=== PATIENT | male | born 1955 | race Caucasian/White ===

== ENCOUNTER 2023-09-24 14:01 | Inpatient (IN) | payer OTHER ==
[2023-09-24] MEDS ORDERED: ASPIRIN 81 MG CHEWABLE TABLET ONE (14:44)
[2023-09-24 15:01] LABS: Absolute Eosinophils 0.2 K/uL (0-0.5); Absolute Lymphocytes (CBC) 1.2 K/uL (0.7-4.9); Absolute Monocytes 1.3 K/uL (0.1-1.3); Absolute Neutrophil 8.3 K/uL (1.8-8.0); Basophils % 0.4 % (0-1.3); Eosinophils % 1.8 % (0-4.4); Hematocrit 45.7 % (39.6-49.0); Hemoglobin 14.4 g/dL (13.6-17.9); Lymphocytes % 10.9 % (15.3-44.8); MCH 28.6 pg (27.0-35.0); MCHC 31.4 g/dL (32.0-36.0); MCV 91.1 fL (80-100); MPV 7.6 fL (7.6-11.3); Neutrophils % 74.9 % (41.7-73.7); Platelets 317 thou/uL (152-406); RBC Red Blood Cell Count 5.02 M/uL (4.33-5.43); Red Cell Distribution Width 14.8 % (12.1-15.2)
[2023-09-24 15:11] LABS: PT Prothrombin Time 10.3 SECONDS (9.5-12.5); Protime INR 0.93
[2023-09-24 15:52] LABS: ALT/SGPT 33 U/L (16-61); AST/SGOT 20 U/L (15-37); Albumin 3.1 g/dL (3.4-5.0); Albumin/Globulin Ratio 0.8 (1.1-1.8); Alkaline Phosphatase 100 U/L (45-117); BUN Blood Urea Nitrogen 13 mg/dL (7-18); Bicarbonate 30 mEq/L (21-32); Bilirubin Total 0.3 mg/dL (0.2-1.0); Globulin 3.9 g/dL (2.3-3.5); Glomerular Filtration Rate 106 ml/min (=/>90); Glucose Level 111 mg/dL (74-106); Magnesium 2.3 mg/dL (1.6-2.4); NT PRO-BNP 44 pg/mL (<125); Sodium Level 133 mEq/L (136-145)
[2023-09-24 15:54] LABS: Bilirubin Direct < 0.2 mg/dL (0-0.2); Bilirubin Indirect, Calculated 0.1 mg/dL (0.2-0.8)
[2023-09-24] MEDS ORDERED: ALBUTEROL 2.5 MG/3 ML NEB SOL ONE ×2 (16:50→18:29)
[2023-09-24] MEDS ORDERED: IPRATROPIUM BROM 0.5MG/2.5ML ONE ×2 (16:50→18:29)
--- NOTE | 2023-09-24 17:48 | RAD REPORT ---
EXAM DESCRIPTION: [place] Single View09/24/2023 3:21 pm CLINICAL HISTORY: CHEST PAIN COMPARISON: CHEST SINGLE VIEW dated 05/21/2008; CTANGIO AORTA FOR DISSECTION dated 05/21/2008 TECHNIQUE: Portable AP view of the chest. FINDINGS: New patchy right lower lung airspace opacity with elevation of the right hemidiaphragm. N o pneumothorax or effusion. The cardiomediastinal contours are unremarkable. IMPRESSION: New patchy right lower lung airspace opacity with elevation of the right hemidiaphragm, which may reflect atelectasis or pneumonia.
[2023-09-24] MEDS ORDERED: CEFTRIAXONE 1000 MG/VIAL ONE (18:01)
[2023-09-24] MEDS ORDERED: METHYLPREDNISOLONE 125 MG INJ ONE (18:01)
[2023-09-24] MEDS ORDERED: AZITHROMYCIN 500 MG INJ IVPB ONE (18:02)
[2023-09-24] MEDS ORDERED: NA CHLORIDE 0.9% 250 ML ONE (18:02)
--- NOTE | 2023-09-24 19:20 | EDPHYS ---
Physician Documentation [facility] Name: Jake Lenz Age: 68 yrs Sex: Male : 1955 Arrival Date: 09/24/2023 Time: 14:01 Bed 14 Private MD: ED Physician Luis Cameron HPI: 09/23 15:08 This 68 yrs old Male presents to ER via EMS with complaints of Chest Tightness. sb4 15:08 Patient states that he developed chest tightness in the middle of his chest today while sb4 working outdoors. He felt his pulse and believed he was "skipping beats"does endorse shortness of breath, but states that is chronic due to his COPD. He has history of hypertension in which she takes medication but he has been out of his atenolol for an unknown amount of time. Denies any nausea or vomiting. Denies any known cardiac history. Historical: - Allergies: 14:31 No Known Allergies; bp - PMHx: 14:31 Chronic obstructive lung disease; Hypertensive disorder; bp - Immunization history:: Adult Immunizations up to date. - Infectious Disease History:: Denies. - Social history:: Smoking status: unknown. ROS: 15:08 Constitutional: Negative for fever, chills, and weight loss, sb4 15:08 Cardiovascular: Positive for chest pain, 15:08 Respiratory: Positive for shortness of breath, 15:08 All other systems are negative, Exam: 15:08 Constitutional: This is a well developed, well nourished patient who is awake, alert, sb4 and in no acute distress. Head/Face: Normocephalic, atraumatic. Eyes: Extra-ocular motions intact. Periorbital areas with no swelling, redness, or edema. ENT: Mucous membranes moist. Cardiovascular: Regular rate and rhythm with a normal S1 and S2. Skin: Warm, dry with normal turgor. Normal color with no rashes, no lesions, and no evidence of cellulitis. MS/ Extremity: Pulses equal, no cyanosis. Neurovascular intact. Full, normal range of motion. 15:08 Abdomen/GI: Inspection: obese 19:22 Respiratory: the patient does not display signs of respiratory distress, Respirations: sb4 normal, Breath sounds: rhonchi, are scattered, wheezing: Vital Signs: 14:30 BP 192 / 96; Pulse 93; Resp 16; Temp 98; Pulse Ox 93% ; bp 15:12 BP 171 / 102; Pulse 96; Resp 19 S; Pulse Ox 94% on R/A; kc6 16:06 BP 169 / 98; Pulse 94; Resp 20 S; Pulse Ox 95% on R/A; kc6 16:59 BP 168 / 84; Pulse 92; Resp 19 S; Pulse Ox 95% on Nebulizer Mask; kc6 17:38 BP 161 / 83; Pulse 94; Resp 19 S; Pulse Ox 92% on R/A; kc6 18:20 Pulse Ox 87% on 3 lpm NC; kc6 19:00 BP 164 / 87; Pulse 95; Resp 18; Pulse Ox 91% on 3 lpm NC; Pain 0/10; cm10 19:30 BP 159 / 78; Pulse 94; Resp 18; Pulse Ox 94% on 3 lpm NC; cm10 20:00 BP 160 / 86; Pulse 93; Resp 18; Pulse Ox 93% on 3 lpm NC; cm10 21:00 BP 147 / 81; Pulse 91; Resp 20; Pulse Ox 91% on 3 lpm NC; cm10 21:30 BP 173 / 94; Pulse 93; Resp 20; Pulse Ox 93% on 3 lpm NC; cm10 22:00 BP 152 / 89; Pulse 92; Resp 18; Pulse Ox 94% on 3 lpm NC; cm10 06/04 00:00 BP 143 / 78; Pulse 99; Resp 20; Pulse Ox 94% on 3 lpm NC; cm10 19:00 Pain Scale: Adult cm10 MDM: 09/23 14:25 Patient medically screened. sb4 15:08 The patient was not given aspirin in the Emergency Department. Administered by EMS. sb4 16:23 Scoring Tools HEART Score: History: ECG: Age: Risk Factors: > or = 3 Risk factors for sb4 atherosclerotic disease (2), Troponin: Total Score = 5. 18:00 Data reviewed: vital signs, nurses notes, lab test result(s), EKG, radiologic studies, sb4 and as a result, I will discharge patient. Consideration of Admission/Observation Escalation of care including admission/observation considered. Counseling: I had a detailed discussion with the patient and/or guardian regarding the historical points, exam findings, and any diagnostic results supporting the discharge/admit diagnosis, the presence of at least one elevated blood pressure reading (>120/80) during this emergency department visit, lab results, radiology results. 18:13 ED course: O2 in the high 80s during my reassessment while we are conversing. states he sb4 feels better, still wheezing on auscultation. discussed results of pneumonia. placed on oxygen. will administer antibiotics, steroids, repeat breathing treatment, and reassess. he is not wanting to stay in the hospital. 19:18 ED course: patient still with wheezes/crackles and O2 at 93% on 3L. will admit for sb4 further management. 09/23 14:33 Order name: Basic Metabolic Panel; Complete Time: 15:57 sb4 09/23 14:33 Order name: CBC with Diff; Complete Time: 15:03 sb 09/23 14:33 Order name: LFT's; Complete Time: 15:57 sb4 09/23 14:33 Order name: Magnesium; Complete Time: 15:57 sb 09/23 14:33 Order name: NT PRO-BNP; Complete Time: 15:57 sb4 09/23 14:33 Order name: PT-INR; Complete Time: 15:12 sb4 09/23 14:33 Order name: Troponin HS; Complete Time: 15:57 sb4 09/23 16:25 Order name: Troponin High Sensitivity; Complete Time: 17:27 sb4 09/23 18:26 Order name: Blood Culture Adult (2) [facility] 09/23 18:26 Order name: Lactate w/ 2H reflex if indic.; Complete Time: 19:34 sb 09/23 21:08 Order name: Thyroid Stimulating Hormone EDNM 09/23 21:08 Order name: CBC with Automated Diff EDMS 09/23 21:08 Order name: CBC with Automated Diff EDMS 09/23 21:08 Order name: Comprehensive Metabolic Panel EDMS 09/23 21:08 Order name: Comprehensive Metabolic Panel EDMS 09/23 21:08 Order name: Lipid Profile EDMS 09/23 21:08 Order name: Lipid Profile EDMS 09/23 21:08 Order name: Magnesium EDMS 09/23 21:08 Order name: Magnesium EDMS 09/23 21:08 Order name: Magnesium EDMS 09/23 21:08 Order name: Magnesium EDMS 09/23 21:08 Order name: Troponin High Sensitivity EDMS 09/23 21:08 Order name: Troponin High Sensitivity EDMS 09/23 21:08 Order name: Sputum Gram Stain EDMS 09/23 14:33 Order name: XRAY Chest (1 view); Complete Time: 17:49 sb4 09/23 14:33 Order name: EKG; Complete Time: 14:34 sb4 09/23 14:33 Order name: Cardiac monitoring; Complete Time: 14:57 sb4 09/23 14:33 Order name: EKG - Nurse/Tech; Complete Time: 14:57 sb4 09/23 14:33 Order name: IV Saline Lock; Complete Time: 14:57 sb4 09/23 14:33 Order name: Labs collected and sent; Complete Time: 14:57 sb4 09/23 14:33 Order name: O2 Per Protocol; Complete Time: 14:57 sb4 09/23 14:33 Order name: O2 Sat Monitoring; Complete Time: 14:57 sb4 EC:55 Rate is 91 beats/min. Rhythm is regular, Sinus Rhythm with Occasional PVCs. OK interval sb4 is normal at 140 msec. QRS interval is normal at 88 msec. QT interval is normal at 368 msec. No Q waves. T waves are Normal. No ST changes noted. Clinical impression: No evidence of ischemia. Interpreted by me. Reviewed by me. Administered Medications: 15:00 Not Given (Other Intervention Used): aspirinchewable tablet 324 mg PO once; 81 mg kc6 tablets x 4 16:57 Drug: DuoNeb Nebulize (3:1) (2.5 mg - 0.5 mg) 3 ml Nebulizer once Route: Nebulizer; kc6 17:39 Follow up: Response: No adverse reaction kc6 18:12 Drug: MethylPrednisoLONE IVP 125 mg IVP once Route: IVP; Site: left antecubital; kc6 19:26 Follow up: Response: No adverse reaction kc6 18:12 Drug: Rocephin IV 1 grams IV at calculated rate once; Given slow IV push per pharmacy kc6 instructions Route: IV; Rate: calculated rate; Site: left antecubital; 19:26 Follow up: Response: No adverse reaction; IV Status: Completed infusion; IV Intake: [id number] 18:12 Drug: AZITHromycin IVPB 500 mg IVPB once over 1 hrs; (mix in 250 mL NS) Route: IVPB; kc6 Infused Over: 1 hrs; Site: left antecubital; 19:25 Follow up: Response: No adverse reaction; IV Status: Completed infusion; IV Intake: kc6 250ml 19:04 Drug: DuoNeb Nebulize (3:1) (2.5 mg - 0.5 mg) 3 ml Nebulizer once Route: Nebulizer; kc6 19:25 Follow up: Response: No adverse reaction kc6 Disposition Summary: 09/24/23 19:19 Hospitalization Ordered Notes: Hospitalization Status: Inpatient Admission sb4 Provider: Jahaira Lainez sb4 [facility] sb4 Condition: Fair sb4 Problem: new sb4 Symptoms: are unchanged sb4 Bed/Room Type: Standard sb4 Room Assignment: 216(09/25/23 00:21) rv1 Diagnosis - Pneumonia, unspecified organism sb4 - COPD/ Chronic obstructive pulmonary disease with (acute) exacerbation sb4 Discharge Instructions: - Discharge Summary Sheet sb4 - Nonspecific Chest Pain, Adult, [id number] sb4 Forms: - Medication Reconciliation Form sb4 - SBAR form sb4 - Leadership Thank You Letter sb4 Addendum: 10/05/2023 07:12 I was immediately available for consultation during this patient's visit. I did not e c2 personally see the patient or discuss the patient with the MESSI. . Signatures: Dispatcher [employer] Jovanny Ramirez, RN Kimmie Marmolejo RN RN kc6 Laura Ames PA-C PA-C sb4 Danyelle Montesinos rv1 Luis Cameron MD MD ec2 Corrections: (The following items were deleted from the chart) 09/23 18:26 18:26 BLOOD CULTURE*+BA.LAB.BRZ ordered. EDNM EDMS 18:26 18:26 LACTATE+C.LAB.BRZ ordered. EDNM EDMS 18:46 18:13 ED course: O2 in the high 80s during my reassessment while we are conversing. sb4 states he feels better. discussed results of pneumonia. placed on oxygen. will administer antibiotics, steroids, repeat breathing treatment, and reassess. he is not wanting to stay in the hospital. sb4 19:22 15:08 Constitutional: This is a well developed, well nourished patient who is awake, sb4 alert, and in no acute distress. Head/Face: Normocephalic, atraumatic. Eyes: Extra-ocular motions intact. Periorbital areas with no swelling, redness, or edema. ENT: Mucous membranes moist. Cardiovascular: Regular rate and rhythm with a normal S1 and S2. Respiratory: Lungs have equal breath sounds bilaterally, clear to auscultation and percussion. No rales, rhonchi or wheezes noted. No increased work of breathing, no retractions or nasal flaring. Skin: Warm, dry with normal turgor. Normal color with no rashes, no lesions, and no evidence of cellulitis. MS/ Extremity: Pulses equal, no cyanosis. Neurovascular intact. Full, normal range of motion. sb4 09/24 00:21 06/03 19:19 sb4 rv1
--- NOTE | 2023-09-24 19:20 | ER ---
Nurse's Notes [facility] Name: Jake Lenz Age: 68 yrs Sex: Male : 1955 Arrival Date: 09/24/2023 Time: 14:01 Bed 14 Private MD: Diagnosis: Pneumonia, unspecified organism;COPD/ Chronic obstructive pulmonary disease with (acute) exacerbation Presentation: 09/23 14:30 Chief complaint: EMS states: CHEST PRESSURE AT WORK. Coronavirus screen: At this time, bp the client does not indicate any symptoms associated with coronavirus-19. Ebola Screen: No symptoms or risks identified at this time. Initial Sepsis Screen: Does the patient meet any 2 criteria? No. Patient's initial sepsis screen is negative. Does the patient have a suspected source of infection? No. Patient's initial sepsis screen is negative. Risk Assessment: Do you want to hurt yourself or someone else? Patient reports no desire to harm self or others. Onset of symptoms is unknown. Care prior to arrival: IV initiated. 18 GA, in the left forearm, Glucose check: 161. 14:30 Method Of Arrival: EMS: [facility] bp 14:30 Acuity: DIVYA 3 bp Triage Assessment: 14:31 General: Appears in no apparent distress. Behavior is calm, cooperative, appropriate bp for age. Pain: Denies pain. EENT: No deficits noted. Neuro: No deficits noted. Cardiovascular: Rhythm is sinus rhythm. Historical: - Allergies: 14:31 No Known Allergies; bp - PMHx: 14:31 Chronic obstructive lung disease; Hypertensive disorder; bp - Immunization history:: Adult Immunizations up to date. - Infectious Disease History:: Denies. - Social history:: Smoking status: unknown. Screenin:10 [facility] ED Fall Risk Assessment (Adult) History of falling in the last 3 months, kc6 including since admission No falls in past 3 months (0 pts) Confusion or Disorientation No (0 pts) Intoxicated or Sedated No (0 pts) Impaired Gait No (0 pts) Mobility Assist Device Used No (0 pt) Altered Elimination No (0 pt) Score/Fall Risk Level 0 - 2 = Low Risk. Abuse screen: Denies threats or abuse. Denies injuries from another. Nutritional screening: No deficits noted. Tuberculosis screening: No symptoms or risk factors identified. Assessment: 15:11 General: Appears in no apparent distress. comfortable, well groomed, well developed, kc6 Behavior is calm, cooperative, appropriate for age. Pain: Complains of pain in chest. Neuro: Level of Consciousness is awake, alert, obeys commands, Oriented to person, place, time, situation, Appropriate for age. Cardiovascular: Reports chest pain, Heart tones S1 S2 present Capillary refill < 3 seconds Rhythm is sinus rhythm with PACs. Respiratory: Reports shortness of breath at rest on exertion Airway is patent Trachea midline Respiratory effort is even, labored, pursed lip, using tripod position, Respiratory pattern is symmetrical, tachypnea Breath sounds with wheezes bilaterally. GI: No signs and/or symptoms were reported involving the gastrointestinal system. : No signs and/or symptoms were reported regarding the genitourinary system. EENT: No signs and/or symptoms were reported regarding the EENT system. Derm: No signs and/or symptoms reported regarding the dermatologic system. Skin is intact, is healthy with good turgor, Skin is pink, warm \T\ dry. Musculoskeletal: No signs and/or symptoms reported regarding the musculoskeletal system. Circulation, motion, and sensation intact. Capillary refill < 3 seconds, Range of motion: intact in all extremities. 16:06 Reassessment: Patient appears in no apparent distress at this time. No changes from kc6 previously documented assessment. Patient and/or family updated on plan of care and expected duration. Pain level reassessed. Patient is alert, oriented x 3, equal unlabored respirations, skin warm/dry/pink. 16:59 Reassessment: Patient appears in no apparent distress at this time. No changes from kc6 previously documented assessment. Patient and/or family updated on plan of care and expected duration. Pain level reassessed. Patient is alert, oriented x 3, equal unlabored respirations, skin warm/dry/pink. 17:38 Reassessment: Patient appears in no apparent distress at this time. No changes from kc6 previously documented assessment. Patient and/or family updated on plan of care and expected duration. Pain level reassessed. Patient is alert, oriented x 3, equal unlabored respirations, skin warm/dry/pink. 18:38 Reassessment: Patient appears in no apparent distress at this time. No changes from kc6 previously documented assessment. Patient and/or family updated on plan of care and expected duration. Pain level reassessed. Patient is alert, oriented x 3, equal unlabored respirations, skin warm/dry/pink. 19:00 Reassessment: Patient appears in no apparent distress at this time. Patient and/or cm10 family updated on plan of care and expected duration. Pain level reassessed. Assumed care of patient at this time. Pt completing breathing at this time. Pt states that he feels better after breathing treatment. Updated pt on plan of care. Pt on continuous log brander on 3L via NC. Patient states feeling better. Patient states symptoms have improved. General: Appears in no apparent distress. comfortable, Behavior is calm, appropriate for age. Neuro: No deficits noted. Level of Consciousness is awake, alert, obeys commands, Oriented to person, place, time, situation. Cardiovascular: Heart tones present Patient's skin is warm and dry. Rhythm is sinus rhythm. Respiratory: No deficits noted. Airway is patent Respiratory effort is even, unlabored, Respiratory pattern is regular, symmetrical, Breath sounds are clear bilaterally. 20:23 Reassessment: Patient appears in no apparent distress at this time. No changes from 10 previously documented assessment. Patient and/or family updated on plan of care and expected duration. Pain level reassessed. Patient is alert, oriented x 3, equal unlabored respirations, skin warm/dry/pink. 21:47 Reassessment: Pt provided with food at this time. cm10 Vital Signs: 14:30 BP 192 / 96; Pulse 93; Resp 16; Temp 98; Pulse Ox 93% ; bp 15:12 BP 171 / 102; Pulse 96; Resp 19 S; Pulse Ox 94% on R/A; kc6 16:06 BP 169 / 98; Pulse 94; Resp 20 S; Pulse Ox 95% on R/A; kc6 16:59 BP 168 / 84; Pulse 92; Resp 19 S; Pulse Ox 95% on Nebulizer Mask; kc6 17:38 BP 161 / 83; Pulse 94; Resp 19 S; Pulse Ox 92% on R/A; kc6 18:20 Pulse Ox 87% on 3 lpm NC; kc6 19:00 BP 164 / 87; Pulse 95; Resp 18; Pulse Ox 91% on 3 lpm NC; Pain 0/10; cm10 19:30 BP 159 / 78; Pulse 94; Resp 18; Pulse Ox 94% on 3 lpm NC; cm10 20:00 BP 160 / 86; Pulse 93; Resp 18; Pulse Ox 93% on 3 lpm NC; cm10 21:00 BP 147 / 81; Pulse 91; Resp 20; Pulse Ox 91% on 3 lpm NC; cm10 21:30 BP 173 / 94; Pulse 93; Resp 20; Pulse Ox 93% on 3 lpm NC; cm10 22:00 BP 152 / 89; Pulse 92; Resp 18; Pulse Ox 94% on 3 lpm NC; cm10 04 00:00 BP 143 / 78; Pulse 99; Resp 20; Pulse Ox 94% on 3 lpm NC; cm10 19:00 Pain Scale: Adult cm10 Vitals: 09/23 19:00 Cardiac Rhythm Assessment Regular. cm10 ED Course: 14:25 Patient arrived in ED. sb4 14:25 Laura Ames PA-C is PHCP. sb4 14:25 Luis Cameron MD is Attending Physician. sb4 14:29 Jovanny Felix, RN is Primary Nurse. bp 14:31 Triage completed. bp 14:31 Arm band placed on. bp 14:42 Kimmie Wheeler, OTONIEL is Primary Nurse. kc6 15:10 Patient has correct armband on for positive identification. Placed in gown. Bed in low kc6 position. Call light in reach. Side rails up X2. Adult w/ patient. Client placed on continuous cardiac and pulse oximetry monitoring. NIBP monitoring applied. photoengraving apprentice on. Pillow given. 15:10 Maintain EMS IV. Dressing intact. Good blood return noted. Site clean \T\ dry. Gauge \T\ marcus 6 site: 20G LAC. 15:23 XRAY Chest (1 view) In Process Unspecified. EDMS 16:57 Troponin High Sensitivity Sent. kc6 19:00 Report given to Vera Dvais RN. kc6 19:00 Client placed on continuous cardiac and pulse oximetry monitoring. NIBP monitoring cm10 applied. photoengraving apprentice on. 19:04 Inserted saline lock: 20 gauge in right forearm, using aseptic technique. Blood kc6 collected. 19:09 Primary Nurse role handed off by Kimmie Wheeler, OTONIEL cm10 19:09 Vera Davis, RN is Primary Nurse. cm10 19:19 Jahaira Lainez MD is Hospitalizing Provider. sb4 20:23 Patient requests liquids. cm10 09/24 00:42 Report faxed to 2nd floor at 0034. Stepan confirmed report was received at 0035. cm10 01:13 Provided Education on: Need for admit. cm10 01:13 No provider procedures requiring assistance completed. Patient admitted, IV remains in cm10 place. Administered Medications: 09/23 15:00 Not Given (Other Intervention Used): aspirinchewable tablet 324 mg PO once; 81 mg kc6 tablets x 4 16:57 Drug: DuoNeb Nebulize (3:1) (2.5 mg - 0.5 mg) 3 ml Nebulizer once Route: Nebulizer; kc6 17:39 Follow up: Response: No adverse reaction kc6 18:12 Drug: MethylPrednisoLONE IVP 125 mg IVP once Route: IVP; Site: left antecubital; kc6 19:26 Follow up: Response: No adverse reaction kc6 18:12 Drug: Rocephin IV 1 grams IV at calculated rate once; Given slow IV push per pharmacy kc6 instructions Route: IV; Rate: calculated rate; Site: left antecubital; 19:26 Follow up: Response: No adverse reaction; IV Status: Completed infusion; IV Intake: [id number] 18:12 Drug: AZITHromycin IVPB 500 mg IVPB once over 1 hrs; (mix in 250 mL NS) Route: IVPB; kc6 Infused Over: 1 hrs; Site: left antecubital; 19:25 Follow up: Response: No adverse reaction; IV Status: Completed infusion; IV Intake: kc6 250ml 19:04 Drug: DuoNeb Nebulize (3:1) (2.5 mg - 0.5 mg) 3 ml Nebulizer once Route: Nebulizer; kc6 19:25 Follow up: Response: No adverse reaction kc6 Medication: 09/24 01:13 VIS not applicable for this client. cm10 Intake: 09/23 19:25 IV: 250ml; Total: 250ml. kc6 19:26 IV: 10ml; Total: 260ml. kc6 Outcome: 19:19 Decision to Hospitalize by Provider. sb4 09/24 00:00 Admitted to ER Hold. Please see [facility] for further documentation. cm10 Condition: good Instructed on the need for admit, 01:29 Patient left the ED. cm10 Signatures: Dispatcher [employer] EDJens Montesian, OTONIEL RN Kimmie Bates RN RN kc6 Laura Ames PA-C PAJessica [email or web address] Vera Davis RN RN cm10 Corrections: (The following items were deleted from the chart) 09/23 14:59 14:58 Aspirin PO Chewable Tablet 324 mg PO kc6 kc6 18:40 15:12 BP 171 / 102; Pulse 96bpm; Resp 21bpm; Spontaneous; Pulse Ox 94% RA; kc6 kc6 18:40 16:06 BP 169 / 98; Pulse 94bpm; Resp 26bpm; Spontaneous; Pulse Ox 95% RA; kc6 kc6
[2023-09-24] MEDS ORDERED: ACETAMINOPHEN 500 MG TAB PO PRN (21:00)
[2023-09-24] MEDS ORDERED: ONDANSETRON 4 MG/2 ML VIAL IV PRN (21:00)
[2023-09-24] MEDS ORDERED: MORPHINE 4 MG/ML SYR IV PRN (21:00)
--- NOTE | 2023-09-24 21:00 | P.HP ---
Certification for Inpatient With expected LOS: >2 Midnights Patient will require the following post-hospital care: None Practitioner: I am a practitioner with admitting privileges, knowledge of patient current condition, hospital course, and medical plan of care. Services: Services provided to patient in accordance with Admission requirements found in Title 42 Section 412.3 of the Code of Federal Regulations Patient History Date of Service: 09/24/23 Reason for admission: Chest pain and tightness History of Present Illness: 68-year-old male with past medical history of hypertension, COPD, who presented today because of substernal anterior chest pain, patient described the pain as more of tightness. Onset was while he was at work today. He admits to some cough with whitish scanty sputum. He denies any hemoptysis. He states his symptoms has been ongoing for like the last 2 days with wheezing but became associated with chest tightness earlier today. He states no recent COPD flareup. On arrival in the ED EKG was unremarkable with sinus tachycardia no ST segment changes, chest x-ray shows new right lower lobe infiltrate worrisome for pneumonia, WBC elevated at 11.5 with 75% neutrophilia, BMP was unremarkable, initial set of troponin was negative. Patient was noted to be wheezing, sats was 94% on room air but he received multiple doses x 2 of nebulizer as well as IV Solu-Medrol Rocephin and Zithromax. He is still requiring 2 L nasal cannula O2 now. Patient has been admitted for acute COPD exacerbation as well as right lower lobe pneumonia - Past Medical/Surgical History Has patient received pneumonia vaccine in the past: No -: Hypertension -: COPD Past Surgical History: Reviewed- Non-Contributory - Family History Family History: Reviewed- Non-Contributory - Social History Smoking Status: Former smoker Counseled patient to stop smoking for: less than 10 minutes Smoking therapy provided: No Patient receptive to therapy: No Alcohol use: No CD- Drugs: No Caffeine use: No Place of Residence: Home Review of Systems 10-point ROS is otherwise unremarkable Eyes: Pain Respiratory: Cough, Shortness of Breath, SOB with Excertion, Pleuritic Pain, Wheezing Cardiovascular: Chest Pain Physical Examination - Physical Exam General: Oriented x3, Mild distress, Obese HEENT: Atraumatic, Normocephalic, PERRLA Neck: Supple, 2+ carotid pulse no bruit, JVD not distended Respiratory: Diminished, Expiratory wheezes Cardiovascular: No edema, Regular rate/rhythm, Normal S1 S2 Gastrointestinal: Normal bowel sounds, Soft and benign, Non-distended Musculoskeletal: No clubbing, No swelling Integumentary: No rashes, No breakdown, No significant lesion Neurological: Normal speech, Normal strength at 5/5 x4 extr, Cranial nerves 3-12 intact External genitalia: No edema, No lesions - Studies Laboratory Data (last 24 hrs) 09/24/23 09/24/23 09/24/23 14:51 14:51 14:51 WBC 11.10 H Hgb 14.4 Hct 45.7 Plt Count 317 PT 10.3 INR 0.93 Sodium 133 L Potassium 4.0 BUN 13 Creatinine 0.60 L Glucose 111 H Magnesium 2.3 Total Bilirubin 0.3 AST 20 ALT 33 Alkaline Phosphatase 100 Assessment and Plan - Problems (Diagnosis) (1) Right lower lobe pneumonia Current Visit: Yes Status: Acute (2) COPD exacerbation Current Visit: Yes Status: Acute (3) Hypertension Current Visit: Yes Status: Acute - Plan Impression Right lower lobe pneumonia Acute COPD exacerbation Hypertension Obesity Plan Will admit patient to inpatient status Will start patient on gentle IV fluid with normal saline Start IV Solu-Medrol 80 every 8 Start empirical antibiotics with cefepime Add DuoNebs every 4 hours as well as Tessalon Perles for cough symptoms Serial set of cardiac enzymes to rule out acute coronary syndrome Elevated blood pressure, resume home atenolol, IV hydralazine as needed Subcutaneous Lovenox for DVT prophylaxis Wean O2 as tolerated Advance directive full code Disposition more than 48 hours expected - Advance Directives Does patient have a Living Will: No Does patient have a Durable POA for Healthcare: No
[2023-09-24] MEDS ORDERED: LORAZEPAM 0.5 MG TABLET PO PRN (21:03)
[2023-09-24] MEDS: METHYLPREDNISOLONE 125 MG INJ IV SCH (22:00)
[2023-09-25] MEDS: ALBUTEROL 2.5 MG/3 ML NEB SOL NEB SCH (00:18)
[2023-09-25] MEDS: IPRATROPIUM BROM 0.5MG/2.5ML NEB SCH (00:19)
[2023-09-25 00:56] VITALS: BMI 32.8
[2023-09-25] MEDS: NA CHLORIDE 0.9% 1,000 ML IV SCH (02:44)
[2023-09-25] MEDS: METHYLPREDNISOLONE 125 MG INJ IV SCH (04:09)
[2023-09-25] MEDS: NICOTINE 21 MG/PAT TD SCH (09:00)
[2023-09-25 09:19] LABS: Absolute Lymphocytes (CBC) 0.4 K/uL (0.7-4.9); Absolute Monocytes 0.1 K/uL (0.1-1.3); Absolute Neutrophil 7.6 K/uL (1.8-8.0); Basophils % 0.3 % (0-1.3); Hematocrit 46.2 % (39.6-49.0); Lymphocytes % 5.2 % (15.3-44.8); MCH 29.9 pg (27.0-35.0); MCHC 32.5 g/dL (32.0-36.0); MPV 7.7 fL (7.6-11.3); Monocytes % 0.7 % (3.3-12.3); Neutrophils % 93.8 % (41.7-73.7); Platelets 275 thou/uL (152-406); RBC Red Blood Cell Count 5.02 M/uL (4.33-5.43); Red Cell Distribution Width 14.7 % (12.1-15.2)
[2023-09-25 09:39] LABS: Albumin 3.1 g/dL (3.4-5.0); Albumin/Globulin Ratio 0.8 (1.1-1.8); Bilirubin Total 0.4 mg/dL (0.2-1.0); Protein, Total 7.1 g/dL (6.4-8.2); Troponin High Sensitivity 7.2 pg/mL (<58.9)
[2023-09-25] MEDS: ENOXAPARIN 40 MG/0.4 ML SQ SCH (09:44)
[2023-09-25] MEDS: FAMOTIDINE 20 MG TAB PO SCH (09:44)
[2023-09-25] MEDS: ASPIRIN EC 81 MG TAB PO SCH (09:44)
[2023-09-25] MEDS: GUAIFENESIN 600 MG SA TAB PO SCH (09:44)
[2023-09-25] MEDS: CEFEPIME 1 GM in NA CHLORIDE 0.9% 100 ML IV SCH (09:45)
[2023-09-25 09:46] LABS: Magnesium 2.1 mg/dL (1.6-2.4); Thyroid Stimulating Hormone 2.11 uIU/mL (0.358-3.740)
[2023-09-25 09:54] LABS: Blood Morphology Comment NOT SEEN (NOT SEEN); Platelet Estimate ADEQ; White Blood Cell Scan OK (OK)
--- NOTE | 2023-09-25 12:27 | P.PN ---
Subjective Date of Service: 09/25/23 Chief Complaint: Chest pain and tightness Pt is resting comfortably in bed. He is using 2L BNC. Pt has COPD an RLL pna. Pt denies any chest pain. He attributed the chest pain on admission to coughing. No other complaints. Review of Systems General: Unremarkable Eyes: Unremarkable ENT: Unremarkable Respiratory: SOB with Excertion Cardiovascular: Unremarkable Gastrointestinal: Unremarkable Genitourinary: Unremarkable Musculoskeletal: Unremarkable Integumentary: Unremarkable Neurological: Unremarkable Lymphatics: Unremarkable Physical Examination - Vital Signs Temperature: 97.2 F Blood Pressure: 173/82 Pulse: 94 Respirations: 20 Pulse Ox (%): 94 - Physical Exam General: Alert, In no apparent distress, Oriented x3 HEENT: Atraumatic, Normocephalic, PERRLA Neck: Supple, 2+ carotid pulse no bruit, JVD not distended Respiratory: Clear to auscultation bilaterally, Normal air movement Cardiovascular: No edema, Normal pulses, Regular rate/rhythm, Normal S1 S2 Capillary refill: <2 Seconds Gastrointestinal: Normal bowel sounds, Soft and benign, Non-distended Musculoskeletal: No clubbing, No swelling, No contractures Integumentary: No breakdown, No significant lesion, No tenderness/swelling Neurological: Normal gait, Normal speech, Normal strength at 5/5 x4 extr Lymphatics: No axilla or inguinal lymphadenopathy - Studies Laboratory Data (last 24 hrs) 09/24/23 09/24/23 09/24/23 14:51 14:51 14:51 WBC 11.10 H Hgb 14.4 Hct 45.7 Plt Count 317 PT 10.3 INR 0.93 Sodium 133 L Potassium 4.0 BUN 13 Creatinine 0.60 L Glucose 111 H Magnesium 2.3 Total Bilirubin 0.3 AST 20 ALT 33 Alkaline Phosphatase 100 Assessment And Plan - Plan Right lower lobe pneumonia: Will continue rocephin and azithro. F/u blood cx. Lactate is 1.2. Acute COPD exacerbation: Will continue steroid, duoneb, 2L BNC oxygen and abx. Hyponatremia: Na is 133. Will monitor Na level. Hypertension: Continue home med Obesity: Pt was advised to lose weight. DVT ppx: lovenox. Dispo: Pending hospital course.
[2023-09-25] MEDS ORDERED: MELATONIN 3 MG TABLET PO PRN (12:37)
--- NOTE | 2023-09-25 13:20 | EKG ---
Test Date: 2023-09-24 Test Time: 14:46:09 Real Time Operator: BRIGITTE MEASUREMENT RESULTS: Intervals: Rate: 91 IN: 140 QRSD: 88 QT: 368 QTc: 452 Snyder: P: 29 IN: 140 QRS: -20 T: 40 INTERPRETIVE STATEMENTS: Sinus rhythm with occasional premature ventricular complexes Otherwise normal ECG Compared to ECG 05/21/2008 10:10:46 Ventricular premature complex(es) now present Sinus bradycardia no longer present Electronically Signed On 09-25-23 13:18:12 CDT by Felipe Denney
[2023-09-25] MEDS: BENZONATATE 100 MG CAP PO PRN (18:51)
[2023-09-25] MEDS: Magnesium Sulfate 2gm IVPB 2 G/50 ML BAG IV ONE (20:32)
[2023-09-26 07:15] LABS: Absolute Lymphocytes (CBC) 0.4 K/uL (0.7-4.9); Absolute Monocytes 0.3 K/uL (0.1-1.3); Absolute Neutrophil 13.3 K/uL (1.8-8.0); Basophils % 0.1 % (0-1.3); Hematocrit 46.8 % (39.6-49.0); Lymphocytes % 2.8 % (15.3-44.8); MCH 29.4 pg (27.0-35.0); MPV 7.9 fL (7.6-11.3); Monocytes % 2.1 % (3.3-12.3); Platelets 294 thou/uL (152-406); RBC Red Blood Cell Count 5.09 M/uL (4.33-5.43); Red Cell Distribution Width 14.6 % (12.1-15.2)
[2023-09-26 07:41] LABS: Anion Gap 5.4 mEq/L (5.0-15.0); Potassium 4.4 mEq/L (3.5-5.1)
--- NOTE | 2023-09-26 12:37 | P.PN ---
Subjective Date of Service: 09/26/23 Chief Complaint: Chest pain and tightness Pt is resting comfortably in bed. He is using 2L BNC. Pt has COPD and RLL pna. Pt denies any chest pain but reports productive cough with yellow sputum. No other complaints. Review of Systems General: Unremarkable Eyes: Unremarkable ENT: Unremarkable Respiratory: Cough, SOB with Excertion Cardiovascular: Unremarkable Gastrointestinal: Unremarkable Genitourinary: Unremarkable Musculoskeletal: Unremarkable Integumentary: Unremarkable Neurological: Unremarkable Lymphatics: Unremarkable Physical Examination - Vital Signs Temperature: 97.5 F Blood Pressure: 162/91 Pulse: 89 Respirations: 16 Pulse Ox (%): 96 - Physical Exam General: Alert, In no apparent distress, Oriented x3 HEENT: Atraumatic, Normocephalic, PERRLA Neck: Supple, 2+ carotid pulse no bruit, JVD not distended Respiratory: Clear to auscultation bilaterally, Normal air movement Cardiovascular: No edema, Normal pulses, Regular rate/rhythm, Normal S1 S2 Capillary refill: <2 Seconds Gastrointestinal: Normal bowel sounds, Soft and benign, Non-distended Musculoskeletal: No clubbing, No swelling Integumentary: No breakdown, No significant lesion, No tenderness/swelling Neurological: Normal speech, Normal strength at 5/5 x4 extr, Normal tone, Sensation intact Lymphatics: No axilla or inguinal lymphadenopathy Assessment And Plan - Plan Right lower lobe pneumonia: Will continue cefepime and mucinex.. F/u blood cx. Lactate is 1.2. Acute COPD exacerbation: Will continue steroid, duoneb, 2L BNC oxygen and abx. Atypical chest pain: resolved. Pt attributed the chest pain to coughing. Troponin is negative x3. Hyponatremia: Na is 133. Will monitor Na level. Hypertension: Continue home med Obesity: Pt was advised to lose weight. Hx of tobacco abuse: Pt was advised to quit smoking. Will give nicotine patch. DVT ppx: lovenox. Dispo: Pending hospital course.
[2023-09-26] MEDS: HYDRALAZINE HCL 20 MG/ML VIAL IV PRN (13:21)
[2023-09-26] MEDS: ATORVASTATIN 40 MG TAB PO SCH (20:05)
[2023-09-27 03:30] LABS: Absolute Lymphocytes (CBC) 0.4 K/uL (0.7-4.9); Absolute Monocytes 0.4 K/uL (0.1-1.3); Absolute Neutrophil 13.3 K/uL (1.8-8.0); Basophils % 0.2 % (0-1.3); Hematocrit 43.3 % (39.6-49.0); Hemoglobin 14.3 g/dL (13.6-17.9); Lymphocytes % 2.6 % (15.3-44.8); MCH 30.3 pg (27.0-35.0); MCV 91.8 fL (80-100); MPV 8.2 fL (7.6-11.3); Monocytes % 3.1 % (3.3-12.3); Neutrophils % 94.1 % (41.7-73.7); Platelets 270 thou/uL (152-406); RBC Red Blood Cell Count 4.72 M/uL (4.33-5.43); Red Cell Distribution Width 14.7 % (12.1-15.2)
[2023-09-27 03:51] LABS: Anion Gap 5.5 mEq/L (5.0-15.0)
[2023-09-27 03:53] LABS: Potassium 4.5 mEq/L (3.5-5.1)
[2023-09-27 03:57] LABS: Band Neutrophils 11 % (0-1); Differential Total Cells Count 100; Lymphocytes 6 % (15-42); Monocytes 3 % (0-10); Segmented Neutrophils 80 % (40-80)
[2023-09-27 03:58] LABS: Blood Morphology Comment NOT SEEN (NOT SEEN); Platelet Estimate ADEQ
--- NOTE | 2023-09-27 10:21 | P.PN ---
Subjective Date of Service: 09/27/23 Chief Complaint: Chest pain and tightness Pt is resting comfortably in bed. He is using 2L BNC. Pt has COPD and RLL pna. Pt denies any chest pain but reports SOB and productive cough with yellow sputum. No other complaints. Review of Systems General: Unremarkable Eyes: Unremarkable ENT: Unremarkable Respiratory: Cough, SOB with Excertion Cardiovascular: Unremarkable Gastrointestinal: Unremarkable Genitourinary: Unremarkable Musculoskeletal: Unremarkable Integumentary: Unremarkable Neurological: Unremarkable Lymphatics: Unremarkable Physical Examination - Vital Signs Temperature: 97.1 F Blood Pressure: 126/60 Pulse: 98 Respirations: 18 Pulse Ox (%): 94 - Physical Exam General: Alert, In no apparent distress, Oriented x3 HEENT: Atraumatic, Normocephalic Neck: Supple, 2+ carotid pulse no bruit, JVD not distended Respiratory: Clear to auscultation bilaterally, Normal air movement Cardiovascular: No edema, Normal pulses, Regular rate/rhythm Capillary refill: <2 Seconds Gastrointestinal: Normal bowel sounds, Soft and benign, Non-distended Musculoskeletal: No clubbing, No swelling, No contractures Integumentary: No rashes, No breakdown, No significant lesion Neurological: Normal speech, Normal strength at 5/5 x4 extr, Normal tone Lymphatics: No axilla or inguinal lymphadenopathy Assessment And Plan - Plan Right lower lobe pneumonia: Will continue cefepime and mucinex.. F/u blood cx. Lactate is 1.2. Acute COPD exacerbation: Will continue steroid, duoneb, 2L BNC oxygen and abx. Atypical chest pain: resolved. Pt attributed the chest pain to coughing. Troponin is negative x3. Hyponatremia: Na is 134 <- 133. Will monitor Na level. Leukocytosis: Due to steroid. WBC is 14. Will monitor. Hypertension: Continue home med Obesity: Pt was advised to lose weight. Hx of tobacco abuse: Pt was advised to quit smoking. Will give nicotine patch. DVT ppx: lovenox. Dispo: Pending hospital course.
[2023-09-27] MEDS: CEFEPIME 2 GM in NA CHLORIDE 0.9% 100 ML IV SCH (18:00)
[2023-09-27] MEDS: IPRATROPIUM BROM 0.5MG/2.5ML NEB SCH (19:49)
[2023-09-27] MEDS: ALBUTEROL 2.5 MG/3 ML NEB SOL NEB SCH (19:49)
[2023-09-28 04:38] LABS: Absolute Basophils 0.1 K/uL (0-0.5); Absolute Lymphocytes (CBC) 0.4 K/uL (0.7-4.9); Absolute Monocytes 0.6 K/uL (0.1-1.3); Absolute Neutrophil 11.5 K/uL (1.8-8.0); Basophils % 0.6 % (0-1.3); Hematocrit 46.8 % (39.6-49.0); Hemoglobin 15.2 g/dL (13.6-17.9); Lymphocytes % 3.4 % (15.3-44.8); MCH 29.7 pg (27.0-35.0); MCHC 32.6 g/dL (32.0-36.0); MCV 91.2 fL (80-100); MPV 8.1 fL (7.6-11.3); Monocytes % 5.1 % (3.3-12.3); Platelets 268 thou/uL (152-406); RBC Red Blood Cell Count 5.13 M/uL (4.33-5.43); Red Cell Distribution Width 14.5 % (12.1-15.2)
[2023-09-28 04:45] LABS: Anion Gap 6.4 mEq/L (5.0-15.0); Potassium 4.4 mEq/L (3.5-5.1)
[2023-09-28 04:53] LABS: Neutrophils % 90.9 % (41.7-73.7)
--- NOTE | 2023-09-28 12:55 | P.PN ---
Subjective Date of Service: 09/28/23 Chief Complaint: Chest pain and tightness Pt is resting comfortably in bed. He is using 2L BNC. Pt has COPD and RLL pna. Pt denies any chest pain but reports SOB and productive cough with yellow sputum. No other complaints. Review of Systems General: Unremarkable Eyes: Unremarkable ENT: Unremarkable Respiratory: SOB with Excertion Cardiovascular: Unremarkable Gastrointestinal: Unremarkable Genitourinary: Unremarkable Musculoskeletal: Unremarkable Integumentary: Unremarkable Neurological: Unremarkable Lymphatics: Unremarkable Physical Examination - Vital Signs Temperature: 97.7 F Blood Pressure: 148/82 Pulse: 92 Respirations: 20 Pulse Ox (%): 92 - Physical Exam General: Alert, In no apparent distress, Oriented x3 HEENT: Atraumatic, Normocephalic, PERRLA Neck: Supple, 2+ carotid pulse no bruit Respiratory: Clear to auscultation bilaterally, Normal air movement Cardiovascular: No edema, Normal pulses, Regular rate/rhythm Capillary refill: <2 Seconds Gastrointestinal: Normal bowel sounds, Soft and benign, Non-distended Musculoskeletal: No clubbing, No swelling, No contractures Integumentary: No rashes, No breakdown, No significant lesion Neurological: Normal speech, Normal strength at 5/5 x4 extr, Normal tone Lymphatics: No axilla or inguinal lymphadenopathy Assessment And Plan - Plan Right lower lobe pneumonia: Will continue cefepime and mucinex.. F/u blood cx. Lactate is 1.2. Acute COPD exacerbation: Will continue steroid, duoneb, 2L BNC oxygen and abx. Atypical chest pain: resolved. Pt attributed the chest pain to coughing. Troponin is negative x3. Hyponatremia: Na is 132<- 134 <- 133. Will monitor Na level. Leukocytosis: Due to steroid. WBC is 12.7<- 14. Will monitor. Hypertension: Continue home med Obesity: Pt was advised to lose weight. Hx of tobacco abuse: Pt was advised to quit smoking. Will give nicotine patch. DVT ppx: lovenox. Dispo: Pending hospital course.
[2023-09-29 10:16] LABS: Absolute Lymphocytes (CBC) 0.4 K/uL (0.7-4.9); Absolute Monocytes 0.8 K/uL (0.1-1.3); Absolute Neutrophil 11.5 K/uL (1.8-8.0); Basophils % 0.1 % (0-1.3); Hematocrit 47.1 % (39.6-49.0); Hemoglobin 15.1 g/dL (13.6-17.9); Lymphocytes % 2.9 % (15.3-44.8); MCH 29.6 pg (27.0-35.0); MCHC 32.1 g/dL (32.0-36.0); MPV 8.3 fL (7.6-11.3); Monocytes % 6.4 % (3.3-12.3); Neutrophils % 90.6 % (41.7-73.7); Platelets 267 thou/uL (152-406); RBC Red Blood Cell Count 5.12 M/uL (4.33-5.43); Red Cell Distribution Width 14.5 % (12.1-15.2)
--- NOTE | 2023-09-29 12:28 | P.PN ---
Subjective Date of Service: 09/29/23 Chief Complaint: Chest pain and tightness Pt is resting comfortably in bed. He is using 2L BNC. Pt has COPD and RLL pna. Na is 130. Pt denies any chest pain but reports SOB and productive cough with yellow sputum. No other complaints. Review of Systems General: Unremarkable Eyes: Unremarkable ENT: Unremarkable Respiratory: Cough, SOB with Excertion Cardiovascular: Unremarkable Gastrointestinal: Unremarkable Genitourinary: Unremarkable Musculoskeletal: Unremarkable Integumentary: Unremarkable Neurological: Unremarkable Lymphatics: Unremarkable Physical Examination - Vital Signs Temperature: 97.7 F Blood Pressure: 162/90 Pulse: 89 Respirations: 20 Pulse Ox (%): 92 - Physical Exam General: Alert, In no apparent distress, Oriented x3 HEENT: Atraumatic, Normocephalic, PERRLA Neck: Supple, 2+ carotid pulse no bruit, JVD not distended Respiratory: Clear to auscultation bilaterally, Normal air movement Cardiovascular: No edema, Normal pulses, Regular rate/rhythm, Normal S1 S2 Capillary refill: <2 Seconds Gastrointestinal: Normal bowel sounds, Soft and benign, Non-distended Musculoskeletal: No clubbing, No swelling, No contractures Integumentary: No breakdown, No significant lesion, No tenderness/swelling Neurological: Normal speech, Normal strength at 5/5 x4 extr, Normal tone Lymphatics: No axilla or inguinal lymphadenopathy Assessment And Plan - Plan Right lower lobe pneumonia: Will continue cefepime and mucinex.. F/u blood cx. Lactate is 1.2. Acute COPD exacerbation: Will continue steroid, duoneb, 2L BNC oxygen and abx. Atypical chest pain: resolved. Pt attributed the chest pain to coughing. Troponin is negative x3. Hyponatremia: Na is 130<- 132<- 134 <- 133. Will give salt tablet and monitor Na level. Leukocytosis: Due to steroid. WBC is 12.7<- 14. Will monitor. Hypertension: Continue home med Obesity: Pt was advised to lose weight. Hx of tobacco abuse: Pt was advised to quit smoking. Will give nicotine patch. DVT ppx: lovenox. Dispo: Pending hospital course.
[2023-09-29] MEDS: SODIUM CHLORIDE 1 GM TAB PO SCH (17:06)
[2023-09-30 09:05] LABS: Absolute Lymphocytes (CBC) 0.5 K/uL (0.7-4.9); Absolute Monocytes 0.5 K/uL (0.1-1.3); Absolute Neutrophil 10.6 K/uL (1.8-8.0); Basophils % 0.1 % (0-1.3); Hematocrit 48.3 % (39.6-49.0); Hemoglobin 15.7 g/dL (13.6-17.9); Lymphocytes % 3.9 % (15.3-44.8); MCH 29.8 pg (27.0-35.0); MCHC 32.5 g/dL (32.0-36.0); MCV 91.5 fL (80-100); Monocytes % 4.4 % (3.3-12.3); Neutrophils % 91.6 % (41.7-73.7); Nucleated Red Blood Cells % 0.1 % (0-0); Platelets 261 thou/uL (152-406); RBC Red Blood Cell Count 5.28 M/uL (4.33-5.43); Red Cell Distribution Width 14.4 % (12.1-15.2)
[2023-09-30 09:18] LABS: Anion Gap 7.5 mEq/L (5.0-15.0); Potassium 4.5 mEq/L (3.5-5.1)
--- NOTE | 2023-09-30 13:16 | P.PN ---
Subjective Date of Service: 09/30/23 Chief Complaint: Chest pain and tightness Pt is resting comfortably in bed. He is using 2L BNC. Pt has COPD and RLL pna. Na is 129<- 130. Pt denies any chest pain but reports SOB and productive cough with yellow sputum. No other complaints. Review of Systems General: Unremarkable Eyes: Unremarkable ENT: Unremarkable Respiratory: Unremarkable Cardiovascular: Unremarkable Gastrointestinal: Unremarkable Genitourinary: Unremarkable Musculoskeletal: Unremarkable Integumentary: Unremarkable Neurological: Unremarkable Lymphatics: Unremarkable Physical Examination - Vital Signs Temperature: 97.9 F Blood Pressure: 144/77 Pulse: 82 Respirations: 17 Pulse Ox (%): 94 - Physical Exam General: Alert, In no apparent distress, Oriented x3 HEENT: Atraumatic, Normocephalic, PERRLA Neck: Supple, 2+ carotid pulse no bruit, JVD not distended Respiratory: Clear to auscultation bilaterally, Normal air movement Cardiovascular: No edema, Normal pulses, Regular rate/rhythm, Normal S1 S2 Capillary refill: <2 Seconds Gastrointestinal: Normal bowel sounds, Soft and benign, Non-distended Musculoskeletal: No clubbing, No swelling, No contractures Integumentary: No rashes, No breakdown, No significant lesion Neurological: Normal gait, Normal speech, Normal strength at 5/5 x4 extr Lymphatics: No axilla or inguinal lymphadenopathy - Studies Microbiology Data (last 24 hrs): 09/24/23 19:00 Blood - Blood Aerobic Blood Culture - Final No growth in 5 days. 09/24/23 19:00 Blood - Blood Anaerobic Blood Culture - Final No growth in 5 days. 09/24/23 18:50 Blood - Blood Aerobic Blood Culture - Final No growth in 5 days. 09/24/23 18:50 Blood - Blood Anaerobic Blood Culture - Final No growth in 5 days. Assessment And Plan - Plan Right lower lobe pneumonia: Will continue cefepime and mucinex.. F/u blood cx. Lactate is 1.2. Acute COPD exacerbation: Will continue steroid, duoneb, 2L BNC oxygen and abx. Atypical chest pain: resolved. Pt attributed the chest pain to coughing. Troponin is negative x3. Hyponatremia: Na is 129<- 130<- 132<- 134 <- 133. Will check urine sodium, urine osm and surum osm. Leukocytosis: Due to steroid. WBC is 12.7<- 14. Will monitor. Hypertension: Continue home med Obesity: Pt was advised to lose weight. Hx of tobacco abuse: Pt was advised to quit smoking. Will give nicotine patch. DVT ppx: lovenox. Dispo: Pending hospital course.
[2023-09-30] MEDS: NA CHLORIDE 0.9% 1,000 ML IV SCH (15:45)
[2023-09-30] MEDS: METHYLPREDNISOLONE 125 MG INJ IV SCH (20:34)
--- NOTE | 2023-10-01 08:41 | P.PN ---
Subjective Date of Service: 10/01/23 Chief Complaint: Chest pain and tightness Admitted for right lower lobe pneumonia, hyponatremia, treated with IV fluids, IV antibiotics, Nephrology consulted for worsening hyponatremia - Physical Exam General: Alert, In no apparent distress, Oriented x3 HEENT: Atraumatic, Normocephalic, PERRLA Neck: Supple, 2+ carotid pulse no bruit, JVD not distended Respiratory: Clear to auscultation bilaterally, Normal air movement Cardiovascular: No edema, Normal pulses, Regular rate/rhythm, Normal S1 S2 Capillary refill: <2 Seconds Gastrointestinal: Normal bowel sounds, Soft and benign, Non-distended Musculoskeletal: No clubbing, No swelling, No contractures Integumentary: No rashes, No breakdown, No significant lesion Neurological: Normal gait, Normal speech, Normal strength at 5/5 x4 extr Review of Systems Per HPI Physical Examination - Vital Signs Temperature: 98.4 F Blood Pressure: 144/70 Pulse: 91 Respirations: 18 Pulse Ox (%): 94 Assessment And Plan - Plan Assessment Acute hypoxic respiratory failure secondary to pneumonia Right lower lobe pneumonia: Will continue cefepime and mucinex.. F/u blood cx. Lactate is 1.2. Acute COPD exacerbation: Will continue steroid, duoneb, 2L BNC oxygen and abx. Atypical chest pain: esolved. Pt attributed the chest pain to coughing. Troponin is negative x3. Hyponatremia: Na is 129<- 130<- 132<- 134 <- 133. 128 Will check urine sodium, urine osm and surum osm. neph consulted Leukocytosis: Due to steroid. WBC is 12.7<- 14. Will monitor. Hypertension: Continue home med Obesity: Pt was advised to lose weight. Hx of tobacco abuse: Pt was advised to quit smoking. Will give nicotine patch. DVT ppx: lovenox. Dispo: Pending hospital course. Discharge Plan: Home - Code Status/Comfort Care Code Status: Full Code Critical Care: No Time Spent Managing PTS Care (In Minutes): 35
--- NOTE | 2023-10-01 09:54 | P.DS ---
Discharge Date: 10/01/23 Reason for Admission: Chest pain and tightness Brief History of Present Illness: Patient is a 68-year-old male with past medical history of hypertension, COPD, who presented today because of substernal anterior chest pain, patient described the pain as more of tightness. Onset was while he was at work today. He admits to some cough with whitish scanty sputum. He denies any hemoptysis. He states his symptoms has been ongoing for like the last 2 days with wheezing but became associated with chest tightness earlier today. He states no recent COPD flareup. On arrival in the ED EKG was unremarkable with sinus tachycardia no ST segment changes, chest x-ray shows new right lower lobe infiltrate worrisome for pneumonia, WBC elevated at 11.5 with 75% neutrophilia, BMP was unremarkable, initial set of troponin was negative. Patient was noted to be wheezing, sats was 94% on room air but he received multiple doses x 2 of nebulizer as well as IV Solu-Medrol Rocephin and Zithromax. He is still requiring 2 L nasal cannula O2 now. Patient has been admitted for acute COPD exacerbation as well as right lower lobe pneumonia Hospital Course: Patient is clinically doing well. Patient sodium level was slightly low and patient had questionable atelectasis in the right lung. Patient was hypoxic. Patient respiratory status has improved and clinically patient is doing better. At this time, patient wants to go home and he is feeling back to his baseline. Plan to discharge in a.m. Vital Signs/Physical Exam: Temp Pulse Resp BP Pulse Ox 98.4 F 91 H 18 144/70 H 94 10/01/23 08:43 10/01/23 08:43 10/01/23 08:43 10/01/23 08:43 10/01/23 08:43 General: Alert, In no apparent distress, Oriented x3 Respiratory: Clear to auscultation bilaterally, Normal air movement Laboratory Data at Discharge: WBC 11.60 thou/uL (4.3-10.9) H 09/30/23 08:55 Hgb 15.7 g/dL (13.6-17.9) 09/30/23 08:55 Hct 48.3 % (39.6-49.0) 09/30/23 08:55 Plt Count 261 thou/uL (152-406) 09/30/23 08:55 PT 10.3 SECONDS (9.5-12.5) 09/24/23 14:51 INR 0.93 09/24/23 14:51 Sodium 128 mEq/L (136-145) L 09/30/23 14:06 Potassium 4.5 mEq/L (3.5-5.1) 09/30/23 08:55 BUN 22 mg/dL (7-18) H 09/30/23 08:55 Creatinine 0.66 mg/dL (0.70-1.30) L 09/30/23 08:55 Glucose 260 mg/dL (74-106) H 09/30/23 08:55 Magnesium 2.0 mg/dL (1.6-2.4) 09/26/23 21:30 Total Bilirubin 0.4 mg/dL (0.2-1.0) 09/25/23 09:05 AST 17 U/L (15-37) 09/25/23 09:05 ALT 29 U/L (16-61) 09/25/23 09:05 Alkaline Phosphatase 94 U/L (45-117) 09/25/23 09:05 Triglycerides 57 mg/dL (<150) 09/25/23 09:05 Cholesterol 208 mg/dL (<200) H 09/25/23 09:05 HDL Cholesterol 76 mg/dL (40-60) H 09/25/23 09:05 Cholesterol/HDL Ratio 2.74 09/25/23 09:05 Home Medications: Albuterol Inhaler [Ventolin Inhaler*] 2 puff IH Q6H PRN #1 inh 10/01/23 Budesonide [Pulmicort] 1 puff NEB BID #60 amp 10/01/23 Budesonide/Formoterol Fumarate [Symbicort 160-4.5 Mcg Inhaler] 1 puff IH BID #1 inh 10/01/23 Cefdinir [Cefdinir*] 300 mg PO BID #14 cap 10/01/23 Losartan Potassium [Cozaar*] 50 mg PO DAILY #30 tablet 10/01/23 New Medications: Cefdinir [Cefdinir*] 300 mg PO BID #14 cap Losartan Potassium [Cozaar*] 50 mg PO DAILY #30 tablet Budesonide [Pulmicort] 1 puff NEB BID #60 amp Budesonide/Formoterol Fumarate [Symbicort 160-4.5 Mcg Inhaler] 1 puff IH BID #1 inh Albuterol Inhaler [Ventolin Inhaler*] 2 puff IH Q6H PRN #1 inh PRN Reason: Shortness Of Breath Physician Discharge Instructions: -DC IV and DC home -Follow-up with PCP in 1 to 2 weeks -Follow-up with Pulmonology in 1 to 2 weeks -Please call Dr. Mejia at [phone] if any questions regarding hospital stay -Please call nursing station at [phone] if any nursing or medication que stions -Return to the emergency room if symptoms worsen Diet: Regular Activity: Fall precautions Followup: NONE,NONE [Primary Care Provider] - Time spent managing pt's care (in minutes): 35
--- NOTE | 2023-10-01 10:06 | P.CNS ---
Date of Consult: 10/01/23 Reason for Consult: Hyponatremia Requesting Physician: Debbie Mejia Chief Complaint: Chest pain and tightness History of Present Illness: 68-year-old male with past medical history of hypertension, COPD, who presented today because of substernal anterior chest pain, patient described the pain as more of tightness. Onset was while he was at work today. He admits to some cough with whitish scanty sputum. He denies any hemoptysis. He states his symptoms has been ongoing for like the last 2 days with wheezing but became associated with chest tightness earlier today. He states no recent COPD flareup. On arrival in the ED EKG was unremarkable with sinus tachycardia no ST segment changes, chest x-ray shows new right lower lobe infiltrate worrisome for pneumonia, WBC elevated at 11.5 with 75% neutrophilia, BMP was unremarkable, initial set of troponin was negative. Patient was noted to be wheezing, sats was 94% on room air but he received multiple doses x 2 of nebulizer as well as IV Solu-Medrol Rocephin and Zithromax. He is still requiring 2 L nasal cannula O2 now. Patient has been admitted for acute COPD exacerbation as well as right lower lobe pneumonia [id number] 15:08 This 68 yrs old Male presents to ER via EMS with complaints of Chest Tightness. sb4 15:08 Patient states that he developed chest tightness in the middle of his chest today while sb4 working outdoors. He felt his pulse and believed he was "skipping beats"does endorse shortness of breath, but states that is chronic due to his COPD. He has history of hypertension in which she takes medication but he has been out of his atenolol for an unknown amount of time. Denies any nausea or vomiting. Denies any known cardiac history. Nurse reports excessive fluid intake throughout the day. Patient believes his low sodium is due to a low salt diet. Allergies No Known Allergies Allergy (Verified 09/25/23 02:37) Home medications list reviewed: Yes Home Medications: Albuterol Inhaler [Ventolin Inhaler*] 2 puff IH Q6H PRN #1 inh 10/01/23 Albuterol Inhaler [Ventolin Inhaler*] 2 puff IH Q6H PRN #1 inh 06/10/24 Albuterol Inhaler [Ventolin Inhaler*] 2 puff IH Q6H PRN #1 inh 10/01/23 Budesonide [Pulmicort] 1 puff IH BID #60 amp 10/01/23 Budesonide [Pulmicort] 1 puff IH BID #60 amp 10/01/23 Budesonide [Pulmicort] 1 puff NEB BID #60 amp 10/01/23 Budesonide/Formoterol Fumarate [Symbicort 160-4.5 Mcg Inhaler] 1 puff IH BID #1 inh 10/01/23 Budesonide/Formoterol Fumarate [Symbicort 160-4.5 Mcg Inhaler] 1 puff IH BID #1 inh 10/01/23 Budesonide/Formoterol Fumarate [Symbicort 160-4.5 Mcg Inhaler] 1 puff IH BID #1 inh 10/01/23 Cefdinir [Cefdinir*] 300 mg PO BID #14 cap 10/01/23 Cefdinir [Cefdinir*] 300 mg PO BID #14 cap 10/01/23 Cefdinir [Cefdinir*] 300 mg PO BID #14 cap 10/01/23 Losartan Potassium [Cozaar*] 50 mg PO DAILY #30 tablet 10/01/23 Metoprolol Tartrate [Lopressor] 25 mg PO BID #60 tab 10/01/23 Sodium Chloride 1,000 mg PO DAILY #30 tab 10/01/23 Sodium Chloride 1,000 mg PO DAILY #30 tab 10/01/23 Sodium Chloride 1,000 mg PO DAILY #30 tab 10/01/23 Sodium Chloride Tab [Sodium Chloride*] 1 gm PO DAILY #30 tab 10/01/23 predniSONE [Deltasone] 20 mg PO BID #20 tab 10/01/23 predniSONE [Deltasone] 20 mg PO BID #20 tab 10/01/23 - Past Medical/Surgical History -: Hypertension -: COPD - Social History Smoking Status: Unknown if ever smoked Alcohol use: No CD- Drugs: No Caffeine use: No Place of Residence: Home Review of Systems 10-point ROS is otherwise unremarkable Cardiovascular: Edema Physical Examination Temp Pulse Resp BP Pulse Ox 98.4 F 91 H 18 144/70 H 94 10/01/23 08:43 10/01/23 08:43 10/01/23 08:43 10/01/23 08:43 10/01/23 08:43 General: In no apparent distress, Oriented x3, Cooperative HEENT: Atraumatic Neck: Supple Respiratory: Clear to auscultation bilaterally Cardiovascular: Regular rate/rhythm, Edema Gastrointestinal: Soft and benign, Non-distended Musculoskeletal: No clubbing, No contractures Integumentary: No rashes, No cyanosis Neurological: Normal speech Blood work reviewed in the chart. Imagings Data: [id number] EXAM DESCRIPTION: RADChest Single View09/24/2023 3:21 pm CLINICAL HISTORY: CHEST PAIN COMPARISON: CHEST SINGLE VIEW dated 05/21/2008; CTANGIO AORTA FOR DISSECTION dated 05/21/2008 TECHNIQUE: Portable AP view of the chest. FINDINGS: New patchy right lower lung airspace opacity with elevation of the right hemidiaphragm. No pneumothorax or effusion. The cardiomediastinal contours are unremarkable. IMPRESSION: New patchy right lower lung airspace opacity with elevation of the right hemidiaphragm, which may reflect atelectasis or pneumonia. Conclusions/Impression: Hypervolemia Hyponatremia -Fluid restriction -DC IVF -Torsemide X1 dose HTN -Hydralazine prn Acute hypoxic respiratory failure Lobar PNA COPD with Exacerbation -Continue Abx -Continue steroids -Nebs prn Cigarette Smoker -Nicotine TD -Recommend cessation Hospitalist and ER notes reviewed Case reviewed with the hospitalist team Thank you kindly for the consultation
[2023-10-01] MEDS: TORSEMIDE 20 MG TAB PO ONE (11:18)
[2023-10-01 12:07] VITALS: TEMP 97.7
[2023-10-01 15:37] VITALS: O2SAT 96
[2023-10-01 16:03] VITALS: BP 165/90
== END 2023-10-01 14:35 | disposition home or self-care (01) | DRG 193 ==
LOC: ER 14:01 → ERHOLD 21:00 → 2ND 09-25 01:10
PROVIDERS: ADMIT Internal Medicine; ATTEND Hospitalist
DX: J18.1 Lobar pneumonia, unspecified organism (principal); J96.01 Acute respiratory failure with hypoxia; J44.1 Chronic obstructive pulmonary disease with (acute) exacerbation; E87.1 Hypo-osmolality and hyponatremia; J44.0 Chronic obstructive pulmonary disease with (acute) lower respiratory infection; I10 Essential (primary) hypertension; E66.9 Obesity, unspecified; T38.0X5A Adverse effect of glucocorticoids and synthetic analogues, initial encounter; Z68.32 Body mass index [BMI] 32.0-32.9, adult; Z79.52 Long term (current) use of systemic steroids; Z79.899 Other long term (current) drug therapy; Z87.891 Personal history of nicotine dependence
CPT/HCPCS: 36415; 71045; 80048; 80053; 80061; 80076; 82947; 83605; 83735; 83880; 83935; 84295; 84300; 84443; 84484; 85025; 85610; 87040; 87070; 87205; 93005; 94640; 96365; 96368; 96375; 99285; J0360; J0692; J0696; J1650; J2919; J3475; J7030; J7050; J7613; J7644